=== PATIENT | male | born 2000 | race Caucasian/White ===

== ENCOUNTER 2020-08-29 15:44 | Emergency (ER) | payer SELFPAY ==
[2020-08-29 16:14] VITALS: BP 150/73; PULSE 98; RESP 16; TEMP 37.8; O2SAT 99; BMI 37.3
--- NOTE | 2020-08-29 17:23 | ED.WOUNDLAC ---
HPI - Wound/Laceration General Chief Complaint: Wound/Laceration Stated Complaint: finger laceration Time Seen by Provider: 08/29/20 16:15 History of Present Illness HPI narrative: Patient complains of laceration to the right pinky finger while cutting a knife and now he has trouble flexing the finger, this happened 1 hour ago in, pain is mild Related Data Previous Rx's Medication Instructions Recorded cephalexin [Keflex] 500 mg PO QID 7 Days #28 cap 08/29/20 Allergies Allergy/AdvReac Type Severity Reaction Status Date / Time No Known Allergies Allergy Unverified 05/23/20 18:53 Review of Systems Review of Systems: Positive for right pinky laceration with inability to flex the finger normally Negative no numbness no weakness no paresthesias no dizziness no confusion no other injury Yes all other systems are reviewed and are negative [facility] Past Medical History Source: nursing notes reviewed Medical History (Updated 08/30/20 @ 00:00 by Background Daemon) No known health problems Social History Social History Advance Directives: No Advance Directives Information Provided: Yes Physical Exam Vital Signs: Vital Signs: Last Vital Signs Temp 100.0 F 08/29/20 16:14 Pulse 98 08/29/20 16:14 Resp 16 08/29/20 16:14 BP 150/73 H 08/29/20 16:14 Pulse Ox 99 08/29/20 16:14 Body Mass Index 37.3 General appearance no distress comfortable relaxed cooperative Head normocephalic atraumatic Neck is supple Respiratory no distress Extremities the right pinky has a central palmar mid proximal phalanx volar 1.5 cm laceration, the patient could only flex the finger weekly, flexor tendon exam was normal, neurovascular was intact distally Course Course Course Narrative: 1.5 cm palmar right 5th finger proximal phalanx laceration with flexor tendon deficit was cleansed and irrigated with normal saline Anesthesia was 7 cc of 1% lidocaine in a digital block The laceration was closed with 450 nylon sutures Splint and dressing were placed Patient was given numbers for hand follow-up, and was advised if follow-up could not be obtained to return to the ER and we would make some calls Wednesday and if unable to get follow-up he should return on Wednesday or Wednesday for wound check and assistance in getting follow up Discharge Plan Discharge Clinical Impression: Flexor tendon laceration of finger with open wound Patient Disposition: Home, Self-Care Additional Instructions: You cut the extensor tendon of her right pinky finger This needs to be repaired by a hand medical/surgery registered nurse within 1 week If [facility] cannot take care of this injury you can try the other numbers I am giving you hand center [phone] If you are unable to get follow-up return to the emergency room Wednesday or Wednesday for recheck during the daytime and we can make some calls Return anytime for redness swelling any sign of infection any worse condition or any concerns We gave you a tetanus shot and we are giving Keflex antibiotic to prevent infection Prescriptions: New cephalexin [Keflex] 500 mg capsule 500 mg PO QID 7 Days Qty: 28 RF: 0 Referrals: Zulema Vasquez MD [Physician] - 2 days (Right 5th finger flexor tendon laceration) Interventions: ED Discharge Assessment Last Done: 08/29/20 18:31 Discharge Date/Time: 08/29/20 18:41
[2020-08-29] MEDS: cephALEXin 500 MG CAPSULE PO (18:07)
[2020-08-29] MEDS: Lidocaine HCl 1 % MPF 5 ML VIAL SUBCUT ×2 (18:08)
== END 2020-08-29 18:41 | disposition home or self-care (01) ==
PROVIDERS: Emergency Provider Emergency Medicine
DX: S61.216A Laceration without foreign body of right little finger without damage to nail, initial encounter (principal); S66.126A Laceration of flexor muscle, fascia and tendon of right little finger at wrist and hand level, initial encounter; W26.0XXA Contact with knife, initial encounter; Y93.9 Activity, unspecified; Y92.9 Unspecified place or not applicable; Y99.9 Unspecified external cause status
CPT/HCPCS: 12001; 90471; 90715; 99283; 99284

== ENCOUNTER 2020-10-16 16:07 | Outpatient (REF) | payer SELFPAY | END 2020-10-16 16:08 | disposition home or self-care (01) | LOC: HO.LAB 16:07 | PROVIDERS: Visit Provider Internal Medicine | DX: Z20.822 Contact with and (suspected) exposure to COVID-19 (principal) | CPT/HCPCS: 36415; C9803; U0003; U0005 ==

== ENCOUNTER 2021-04-03 04:56 | Emergency (ER) | payer SELFPAY ==
--- NOTE | ~2021-04-03 | CT_ITS ---
EXAMINATION: CT HEAD WITHOUT CONTRAST CLINICAL INFORMATION: Patient numbness. Cocaine use. COMPARISON: None TECHNIQUE: Contiguous axial imaging was performed from the skull base to vertex without intravenous administration of contrast. This CT examination was performed using dose optimization techniques as appropriate, variously including the following: *Automated exposure control *Adjustment of mA and/or kV according to patient size (this includes techniques or standardized protocols for targeted exams where dose is matched to indication/reason for exam; i.e. extremities or head) *Use of iterative reconstruction technique DLP: 756 mGy-cm FINDINGS: There is no evidence of acute intracranial hemorrhage or territorial infarction. No abnormal mass effect or midline shift is seen. Alejo to white matter differentiation is well preserved. No extra-axial fluid collections are identified. The ventricles are normal in size. There is no abnormal attenuation within the brain parenchyma. The osseous structures and soft tissues are normal. Mild mucosal thickening present throughout the bilateral maxillary sinuses, polypoid on the right. Probable chronic fracture of the osseous nasal septum with apex right angulation. CT/CT head/brain wo con IMPRESSION: No acute intracranial pathology.
[2021-04-03 05:13] VITALS: BP 156/94; BP 190/98; PULSE 120; PULSE 81; RESP 16; TEMP 37.1; O2SAT 94; O2SAT 98; BMI 34.4
--- NOTE | 2021-04-03 05:45 | ECG_ITS ---
Test Reason : DRUG USE Blood Pressure : / mmHG Vent. Rate : 075 BPM Atrial Rate : 075 BPM P-R Int : 130 ms QRS Dur : 094 ms QT Int : 356 ms P-R-T Axes : 041 008 -02 degrees QTc Int : 397 ms Normal sinus rhythm with sinus arrhythmia Voltage criteria for left ventricular hypertrophy - but could be normal variant Otherwise normal EKG No previous ECGs available Referred By: Nancy Hutchinson Electronically Signed By:JEAN CLAUDE BOWEN
--- NOTE | 2021-04-03 05:45 | ED.GENADULT ---
HPI - General Adult General Chief complaint: General Medical Stated complaint: right sided arm and toe pain Time Seen by Provider: 04/03/21 05:45 Source: patient and skull chopper Mode of arrival: EMS History of Present Illness HPI narrative: 21-year-old male who is brought in via EMS without significant past medical history with complaints of having been drinking alcohol and snorting cocaine approximately 2300 last night and patient noticed that the right side of his face felt like it was swollen and he had complaints of right arm numbness and tingling as well as bilateral great toe purplish change in color. Currently, patient states that all the symptoms have resolved. He denies this ever having happen before, denies any shortness of breath/chest pain/palpitations. Related Data Previous Rx's Medication Instructions Recorded cephalexin 500 mg capsule (Keflex) 500 mg PO QID 7 Days #28 cap 08/29/20 Allergies Allergy/AdvReac Type Severity Reaction Status Date / Time No Known Allergies Allergy Unverified 05/23/20 18:53 Review of Systems Review of Systems: Pertinent positives and negatives as stated in HPI 10 point review of systems is otherwise negative. PMFSH Past Medical History Source: nursing notes reviewed Medical History No known health problems Social History Social History Advance Directives: No Advance Directives Information Provided: No Physical Exam Vital Signs: Vital Signs: Last Vital Signs Temp 98.7 F 04/03/21 05:13 Pulse 120 H 04/03/21 05:13 Resp 16 04/03/21 05:13 BP 156/94 H 04/03/21 05:13 Pulse Ox 98 04/03/21 05:13 Body Mass Index 34.4 VITAL SIGNS: Reviewed. GENERAL: Well developed, well nourished, in no acute distress. HEAD: Normocephalic/atraumatic EYES: PERRLA, EOMI intact without pain, no nystagmus EARS: Ext canals without abnormality, TMs non-bulging and non-erythematous NOSE: Nares patent bilateral OROPHARYNX: no oral lesions noted, posterior pharynx clear and non-erythematous without noted tonsillar enlargement/erythema/exudates NECK: Supple, no adenopathy LUNGS: Normal breath sounds. No adventitious sounds or accessory muscle use. SpO2<98> CARDIOVASCULAR: Regular rate and rhythm without noted murmurs, no JVD or lower extremity edema. ABDOMEN: Soft, non-tender, non-distended with bowel sounds. MUSCULOSKELETAL: No tenderness, deformities, or effusions noted on gross inspection. EXTREMITIES: No cyanosis, clubbing or edema, there is no noted discoloration of any digits. SKIN: Inspection of the skin reveals no rashes NEUROLOGIC: Alert and oriented x 4. Strength and sensation to light touch were grossly intact x 4, no pronator drift, no facial asymmetry, cranial nerves 2-12 grossly intact, cerebellar testing is without deficit. Course Course Course Narrative: 21-year-old male with history and clinical presentation most consistent with cocaine induced vasospasm that may have led to transient neurologic deficits that have since completely resolved. Extensive conversation held with this patient regarding the dangers of cocaine use. Review of CT of the head and EKG are without acute findings and patient is otherwise completely asymptomatic at this time. Patient discharged home in stable condition with reiteration instructions to stop the use of cocaine as next time and has a potential to cause longstanding damage possible heart attack. Medical Decision Making ECG Data Attestation: I personally reviewed and interpreted this ECG as follows: Prior ECG tracings: not available for review Interpretation: Normal sinus rhythm with sinus arrhythmia, HR-75, no STEMI, CO/QRS/QTC are within normal limits. Discharge Plan Discharge Clinical Impression: Neurologic disorder, Cocaine abuse Patient Disposition: Home, Self-Care Instructions: Cocaine Abuse (ED) Additional Instructions: 1. Jesusita un seguimiento con wang proveedor de atenci?n primaria en los pr?ximos 2-3 d?as para antolin reevaluaci?n. 2. Deje de consumir coca?na. Regrese a la rachel de emergencias si desarrolla s?ntomas que empeoran o s?ntomas adicionales. Prescriptions: No Action cephalexin [Keflex] 500 mg capsule 500 mg PO QID 7 Days Qty: 28 RF: 0 Referrals: Physician,None [Primary Care Provider] - 2 days Print Language: Serbian
[2021-04-03 07:04] VITALS: BP 119/69; PULSE 101; RESP 17; O2SAT 98
--- NOTE | 2021-04-03 07:09 | PC.NURSE ---
Patient is alert and oriented. NO distress noted. Patient given discharge instructions with no questions voiced.
== END 2021-04-03 07:19 | disposition home or self-care (01) ==
PROVIDERS: Emergency Provider Student in an Organized Health Care Education/Training Program
DX: R22.1 Localized swelling, mass and lump, neck (principal); R29.90 Unspecified symptoms and signs involving the nervous system; F14.10 Cocaine abuse, uncomplicated; M62.838 Other muscle spasm; R20.0 Anesthesia of skin; Z79.899 Other long term (current) drug therapy
CPT/HCPCS: 70450; 93005; 99284